=== PATIENT | female | born 1955 | race American Indian/Alaskan Native ===

== ENCOUNTER 2017-10-26 06:40 | Day surgery (SDC) | payer BC ==
[2017-10-26] MEDS ORDERED: WATER FOR IRRIG STERILE IR ONE ×2 (07:15→09:03)
--- NOTE | 2017-10-26 07:44 | Anesthesia Consultation ---
Anesthesia Consult and Med Hx Date of service: 10/26/17 - Airway Anesthetic Teeth Evaluation: Good ROM Head & Neck: Adequate Mental/Hyoid Distance: Adequate Mallampati Class: Class II Intubation Access Assessment: Probably Good - Pulmonary Exam CTA: Yes - Cardiac Exam Cardiac Exam: RRR - Pre-Operative Health Status ASA Pre-Surgery Classification: ASA3 Proposed Anesthetic Plan: MAC - Pulmonary Hx Sleep Apnea: Yes (recent sleep study improved after wt loss, no longer on cpap) - Cardiovascular System Hx Hypertension: Yes - Gastrointestinal Hx Gastroesophageal Reflux Disease: No - Endocrine Hx Renal Disease: Yes (renal cyst) Hx Liver Disease: Yes (Cyst on liver) Hx Insulin Dependent Diabetes: Yes - Other Systems Hx Obesity: Yes
[2017-10-26] MEDS ORDERED: DIPRIVAN 10 MG/ML IV ONE (07:45)
--- NOTE | 2017-10-26 07:45 | Anesthesia Day of Surgery ---
Anesthesia Day of Surgery - Day of Surgery Patient Examined: Yes Patient H&P Reviewed: Yes Patient is NPO: Yes
[2017-10-26] MEDS ORDERED: NACL 0.9% 1000 ML 1,000 ML IV SCH (08:00)
--- NOTE | 2017-10-26 09:00 | Discharge Summary ---
Providers - Providers Attending physician: SUSAN POOLE Primary care physician: YVONNE BAUER Hospitalization Procedures: EGD Hospital course: 62 y.o. F presents to endoscopy for evaluation of her gastric bypass. She underwent an egd and tolerated the procedure well. Disposition: - TO HOME OR SELFCARE Core Measure Documentation - Palliative Care Palliative Care/ Comfort Measures: Not Applicable - Core Measures Any of the following diagnoses?: none Exam - Physical Exam Narrative exam: no change from prior - Constitutional Vitals: Temp Pulse Resp BP Pulse Ox 98.6 F 78 19 156/83 98 10/26/17 08:47 10/26/17 08:47 10/26/17 08:47 10/26/17 08:47 10/26/17 08:47 Plan Additional Instructions: follow up with Dr. Poloe to review EGD results Follow up with: YVONNE BAUER MD [Primary Care Provider] - 7 Days
--- NOTE | 2017-10-26 09:04 | Operative Report ---
Operative Report Operative Report: EGD Post bypass DATE: 10/28/17 OPERATIVE REPORT - EGD PREOP DIAGNOSIS: gastric dyspepsia POSTOP DIAGNOSIS: same SURGERY: Upper endoscopy. SURGEON:Dr. Virgilio Falk DEVELOPING MACHINE OPERATOR: Cheryl Villarreal DO TYPE OF ANESTHESIA: MAC. ESTIMATED BLOOD LOSS: None. COMPLICATIONS: None. SPECIMENS REMOVED: None. FINDINGS: 1. normal esophagus 2. gastric pouch - 30-40ml 3. gastrojejunal anastomosis is 10-15mm INDICATIONS:INDICATION FOR PROCEDURE: Patient is a 62-year-old F s/p gastric bypass in 2007. The patient is here today for evaluation for revisional surgery. The patient is here for a planned EGD for gastric dyspepsia. PROCEDURE DETAILS: After consent was reviewed, patient was taken back to the operating room where patient was placed in the left lateral decubitus position and a bite block was placed in the mouth. After a time-out was called, MAC anesthesia was initiated. I then passed the endoscope into the patients oropharynx, into the esophagus, visualized the entire esophagus, which was all within normal limits. I then visualized the gastric pouch which was normal and about 30-40ml in size. The gastrojejunal anastomosis was normal at about 10-15mm. The proximal portion of the brii limb was normal. I then desufflated the gastric pouch and removed the endoscope. Patient tolerated procedure well and was transferred to recovery room in good and stable condition
--- NOTE | 2017-10-26 09:15 | Post Anesthesia Evaluation ---
- Post Anesthesia Evaluation Patient Participated: Yes Airway Patent: Yes Stable Respiratory Function: Yes Temp > 96.8F: Yes Pain Manageable: Yes Adequeate Hydration: Yes Anesthesia Complications: No
[2017-10-26 09:30] VITALS: BP 184/86
== END 2017-10-26 06:41 | disposition home or self-care (01) ==
LOC: GIO 06:40
PROVIDERS: ATTEND Specialist
DX: K20.9 Esophagitis, unspecified (principal); K44.9 Diaphragmatic hernia without obstruction or gangrene; I10 Essential (primary) hypertension; E11.9 Type 2 diabetes mellitus without complications; K58.9 Irritable bowel syndrome, unspecified; M19.90 Unspecified osteoarthritis, unspecified site; G47.30 Sleep apnea, unspecified; E66.01 Morbid (severe) obesity due to excess calories; Z68.41 Body mass index [BMI] 40.0-44.9, adult; Z79.4 Long term (current) use of insulin; Z98.890 Other specified postprocedural states; Z98.49 Cataract extraction status, unspecified eye; Z86.73 Personal history of transient ischemic attack (TIA), and cerebral infarction without residual deficits; Z88.8 Allergy status to other drugs, medicaments and biological substances; Z98.84 Bariatric surgery status; Z88.5 Allergy status to narcotic agent
CPT/HCPCS: 43235; 82962; J2704; J7030